=== PATIENT | female | born 1980 | race African-American/Black ===

== ENCOUNTER 2016-09-21 18:00 | Emergency (ER) | payer OTHER ==
[~2016-09-21] VITALS: Ht 162.6 cm; Wt 104.3 kg
--- NOTE | 2016-09-21 18:20 | ED GENERAL ADULT ---
History of Present Illness General Chief Complaint: General Adult Stated Complaint: GENERAL WEAKNESS Source: patient Exam Limitations: no limitations Vital Signs & Intake/Output Vital Signs & Intake/Output Vital Signs Date Time Temp Pulse Resp B/P Pulse O2 O2 Flow FiO2 Ox Delivery Rate 09/21 1930 97.4 89 18 116/81 99 Room Air 09/21 1821 98 Room Air 09/21 1805 97.1 90 18 114/83 98 Room Air ED Intake and Output 09/22 0000 09/21 1200 Intake Total 0 Output Total Balance 0 Intake, Oral 0 Patient 230 lb Weight Allergies Coded Allergies: No Known Drug Allergies (09/21/16) Triage Note: PT COMPLAINSOF HISTORY OF ANEMIA AND THAT FOR THE PAST YEAR SHE HAS EPISODES OF FEELING LIGHT HEADED, SALVADOR AND WEAK. COMES TODAY BECAUSE SHE FEELS SHE IS GEETING WORSE Triage Nurses Notes Reviewed? yes Onset: Gradual Duration: intermittent Timing: recent history Severity: moderate Severity Numbers: 5 : No Patient currently breastfeeds: No HPI: Patient is a 36-year-old female with a past medical history of migraines and iron deficiency anemia who states that patient has had intermittent long- standing migraines in the past few days her migraines have worsened causing her to have dizziness lightheadedness sensation. Patient also states that she was prescribed iron supplementation few months ago however she only took this for one month and states that her symptoms of dizziness and lightheaded sensation may be attributed to iron deficiencies. Patient's last bowel movement was within last 24 hours no blood no melena noted. Patient does not smoke. Patient is is not on an oral contraceptive denies any history of DVT PE, recent travel or recent surgery leg swelling history of cancer Patient states in the past she was prescribed a "blue pill" with relief of her headaches. Patient has tried [id number] Tylenol and ibuprofen without relief of symptoms. Patient is able tolerate by mouth (JUAN R SANTORO) Reconcile Medications Albuterol Sulfate (Proair Hfa) 90 MCG HFA.AER.AD 90 MCG INH DAILY ASTHMA ( Reported) Ferrous Sulfate 325 MG (65 MG IRON) TABLET 1 TAB PO DAILY IRON DEFICIENCY Ketorolac Tromethamine 10 MG TABLET 1 TAB PO TID PRN HEADACHE Sumatriptan Succinate (Imitrex) 50 MG TABLET 1 TAB PO AD PRN MIGRAINE TAKE IF NEEDED ONLY FOR HEADACHE DO NOT EXCEED MORE THAN TWO TABLETS A DAY (LIZETTE JUNIOR,ALETA Ulrich) Past History Travel History Traveled to [place] past 21 day No Medical History Any Pertinent Medical History? 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 No (JUAN R SANTORO) Review of Systems Review of Systems Constitutional: Reports: see HPI, weakness. EENTM: Reports: no symptoms. Respiratory: Reports: no symptoms. Cardiovascular: Reports: no symptoms. GI: Reports: no symptoms. Genitourinary: Reports: no symptoms. Musculoskeletal: Reports: no symptoms. Skin: Reports: no symptoms. Neurological/Psychological: Reports: see HPI, headache. Hematologic/Endocrine: Reports: no symptoms. Immunologic/Allergic: Reports: no symptoms. All Other Systems: Reviewed and Negative (JUAN R SANTORO) Physical Exam Physical Exam General Appearance: no apparent distress, alert, comfortable Head: atraumatic Eyes: Bilateral: normal appearance, PERRL, EOMI. 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 No CVA/TIA Diagnosis: No Severe Sepsis Present: No Septic Shock Present: No (JUAN R SANTORO) Progress Differential Diagnoses I considered the following diagnoses in my evaluation of the patient: [Anemia, migraines, subarachnoid hemorrhage, cancer, GI bleed, idiopathic intracranial hypertension] Plan of Care: Orders Procedure Date/time Status PARTIAL THROMBOPLASTIN TIME 09/21 1818 Complete PROTHROMBIN TIME 09/21 1818 Complete HUMAN BETA HCG SCREEN 09/21 1818 Complete COMPREHENSIVE METABOLIC PANEL 09/21 1818 Complete CBC WITHOUT DIFFERENTIAL 09/21 1818 Complete Laboratory Tests 09/21/16 1833: Anion Gap 11, Estimated GFR > 60, BUN/Creatinine Ratio 13.8, Glucose 74, Calcium 9.4, Total Bilirubin 0.3, AST 22, ALT 32, Alkaline Phosphatase 99, Total Protein 7.4, Albumin 3.9, Globulin 3.5, Albumin/Globulin Ratio 1.1, Total Beta HCG NEGATIVE, PT 12.4, INR 1.18, APTT 27, CBC w Diff NO MAN DIFF REQ, RBC 4.62, MCV 74.3 L, MCH 24.0 L, RDW 17.6 H, MPV 9.4, Gran % 48.0, Lymphocytes % 35.4, Monocytes % 8.3, Eosinophils % 7.6 H, Basophils % 0.7, Absolute Granulocytes 3.2, Absolute Lymphocytes 2.4, Absolute Monocytes 0.6, Absolute Eosinophils 0.5, Absolute Basophils 0, PUBS MCHC 32.3 L Patient currently is in no apparent distress vital signs are stable and patient has unremarkable physical exam PERC ZERO 09/21/2016 7:29:11 PM reevaluation the patient, patient had significant resolution of her presenting complete of migraine and dizziness. Patient had unremarkable hemoglobin and hematocrit was normotensive on discharge. Patient was strongly advised follow-up with primary doctor doctor and neurologist for chronic migraines. Upon discharge patient looks well no apparent distress was able tolerate by mouth patient will comply discharge instructions and had no questions (JUAN R SANTORO) Initial ED EKG: none (JUAN R SANTORO) Departure Departure Disposition: HOME OR SELF CARE Condition: Stable Clinical Impression Primary Impression: Migraine Referrals: JOSH ESTEVEZ MD (PCP/Family) Additional Instructions: As discussed begin drinking plenty water for hydration. Begin the prescription of iron supplements as directed. Begin the prescription ketorolac for headache relief and the prescription Imitrex for breakthrough headache relief. If symptoms worsen return to emergency room. On Saturday follow-up with your primary care doctor and follow-up with Dr. Virk for neurology establishment. Departure Forms: Customer Survey General Discharge Information Prescriptions: Current Visit Scripts Ferrous Sulfate 1 TAB PO DAILY #60 TAB Ketorolac Tromethamine 1 TAB PO TID PRN HEADACHE #15 TAB Sumatriptan Succinate (Imitrex) 1 TAB PO AD PRN MIGRAINE #9 TAB TAKE IF NEEDED ONLY FOR HEADACHE DO NOT EXCEED MORE THAN TWO TABLETS A DAY (JUAN R SANTORO) PA/FLYER BUILDER Co-Sign Statement Statement: ED Attending supervision documentation- [] I saw and evaluated the patient. I have also reviewed all the pertinent lab results and diagnostic results. I agree with the findings and the plan of care as documented in the PA's/FLYER BUILDER's documentation. [x] I have reviewed the ED Record and agree with the PA's/FLYER BUILDER's documentation. [] Additions or exceptions (if any) to the PAs/FLYER BUILDER's note and plan are summarized below: [] (LIZETTE JUNIOR,ALETA Ulrich) Critical Care Note Critical Care Note Critical Care Time: non-applicable (JUAN R SANTORO)
[2016-09-21] MEDS ORDERED: FERROUS SULFAT325 M3 PO (18:28)
[2016-09-21 19:19] LABS: ABSOLUTE BASOPHIL COUNT 0 /CUMM (0.0-0.2); ABSOLUTE EOSINOPHIL COUNT 0.5 /CUMM (0.0-0.7); ABSOLUTE GRANULOCYTE CT 3.2 /CUMM (1.4-6.5); ABSOLUTE LYMPH COUNT 2.4 /CUMM (1.2-3.4); ABSOLUTE MONOCYTE COUNT 0.6 /CUMM (0.10-0.60); BASOPHIL % 0.7 % (0.0-2.0); EOSINOPHIL % 7.6 % (0-5); HEMATOCRIT 34.4 % (37-47); MEAN CORPUSCULAR HGB CONC 32.3 G/DL (33.0-37.0); MEAN CORPUSCULAR VOLUME 74.3 FL (81.0-99.0); MEAN PLATELET VOLUME 9.4 FL (7.4-10.4); PLATELET COUNT 375 /CUMM (130-400); PT 12.4 SEC (9.4-12.5); PTT 27 SEC (25-37); RBC DISTRIBUTION WIDTH 17.6 % (11.5-14.5); RED BLOOD CELL CT 4.62 /CUMM (4.20-5.40); WHITE BLOOD CELL COUNT 6.7 /CUMM (4.8-10.8)
[2016-09-21] MEDS ORDERED: KETOROLAC TROME10 M1 PO (19:22)
[2016-09-21] MEDS ORDERED: IMITREX50 M1 PO (19:22)
[2016-09-21 19:30] VITALS: BP 116/81
[2016-09-21] MEDS ORDERED: PROAIR HFA8.5 GM INH (20:16)
== END 2016-09-21 19:30 ==
LOC: ERH 18:00
PROVIDERS: Physician Assistant
DX: G43.909 Migraine, unspecified, not intractable, without status migrainosus (principal)
CPT/HCPCS: 96372; J1885